=== PATIENT | female | born 2000 | race Caucasian/White ===

== ENCOUNTER 2019-07-28 13:29 | Emergency (ER) | payer MEDICAID ==
[~2019-07-28] VITALS: Ht 162.6 cm; Wt 73.0 kg
[2019-07-28 13:47] VITALS: BP 123/82
[2019-07-28] MEDS ORDERED: PNV1TABL50 PO (13:52)
== END 2019-07-28 17:11 | disposition left against medical advice (07) ==
LOC: ER 13:29
DX: Z53.21 Procedure and treatment not carried out due to patient leaving prior to being seen by health care provider (principal)